=== PATIENT | male | born 1950 | race Caucasian/White ===

== ENCOUNTER 2021-09-20 00:15 | Day surgery (SDC) | payer MEDICARE, SELFPAY ==
[2021-09-06 14:49] VITALS: BMI 26.1
[2021-09-20 06:46] VITALS: BP 115/64; PULSE 116; RESP 16; TEMP 36.8; O2SAT 100
[2021-09-20] MEDS: LACTATED RINGERS 1,000 ML 150 ML IV CONT (07:01)
[2021-09-20 07:04] LABS: Glucose Point of Care 106 mg/dl (65-105)
--- NOTE | 2021-09-20 07:27 | P.CONGI_ITS ---
Assessment and Plan Assessment and plan (1) Positive colorectal cancer screening using Cologuard test: Code(s): R19.5 - Other fecal abnormalities Status: Acute Assessment and Plan: Patient was found to have positive Cologuard test. For this reason colonoscopy will be performed to assess more thoroughly. Further recommendations will be given after endoscopy. GI Consult Note Consult date/time: 09/20/21 07:27 HPI: Brent Amin is a 70 year old male Presents for screening col onoscopy. Patient reports his current weight appetite and bowel movements are normal. He denies abdominal pain. He has had no bleeding. Patient recently had Cologuard test found to be positive. He presents today for screening colonoscopy. Family history is noncontributory. Review of Systems Review of Systems: All systems reviewed & are unremarkable except as noted in HPI and below PMFSH Social History Social History Smoking status: Never smoker Alcohol intake: never Substance use: never Substance use type: does not use Living arrangements: with family Spiritual care concerns: No Meds Home Medications and Allergies Home Medications Medication Instructions Recorded Confirmed Type Trulicity 1.5 ml IM WEEKLY 09/06/21 09/20/21 History aspirin 81 mg PO DAILY 09/06/21 09/20/21 History losartan 100 mg PO DAILY 09/06/21 09/20/21 History rosuvastatin 20 mg PO DAILY 09/06/21 09/20/21 History Allergies Allergy/AdvReac Type Severity Reaction Status Date / Time No Known Allergies Allergy Verified 09/20/21 06:44 Vital Signs Vital Signs - 24 hr 09/20/21 06:46 Temperature 98.3 F Pulse Rate 116 H Respiratory Rate 16 Blood Pressure 115/64 Pulse Oximetry 100 Exam Narrative: Physical exam reveals patient to be alert. Vital signs stable. HEENT exam is unremarkable. Patient is anicteric. Lungs are clear to auscultation and percussion. Heart is without murmur or extra sounds. Abdominal exam bowel sounds are present soft nontender with no organomegaly. Digital external rectal exam is normal.
--- NOTE | 2021-09-20 07:31 | P.PNAN_ITS ---
Anes - Initial Pre Proc Eval Procedure: Operation Date: 09/20/21 08:00 Proposed Procedures p Screening Colonoscopy - Jerry Olmos MD Date/Time: 09/20/21 07:31 Surgeon: Jerry Olmos MD Pre Op Diagnosis: positive cologuard Patient Data Age: 70 Gender: M Height: 1.8 m Weight: 86.1 kg Last Vital Signs Temp 36.8 C 09/20/21 06:46 Pulse 116 H 09/20/21 06:46 Resp 16 09/20/21 06:46 BP 115/64 09/20/21 06:46 Pulse Ox 100 09/20/21 06:46 Allergies Allergy/AdvReac Type Severity Reaction Status Date / Time No Known Allergies Allergy Verified 09/20/21 06:44 Home Medications Medication Instructions Recorded Confirmed Type Trulicity 1.5 ml IM WEEKLY 09/06/21 09/20/21 History aspirin 81 mg PO DAILY 09/06/21 09/20/21 History losartan 100 mg PO DAILY 09/06/21 09/20/21 History rosuvastatin 20 mg PO DAILY 09/06/21 09/20/21 History Laboratory Tests 09/20/21 07:00 POC Capillary Glucose 106 mg/dl H mg/dl (65-105) Patient hx anesthesia problems: none Family hx anesthesia problems: none Results Review: All pre-operative results and documents have been reviewed as part of the pre-operative evaluation. [facility] Past Medical History Medical History Diabetes Hyperlipidemia Hypertension Prostate CA Social History Social History Smoking status: Never smoker Alcohol intake: never Substance use: never Substance use type: does not use Living arrangements: with family Spiritual care concerns: No Anes - Eval Final PreProcedure Day of Procedure 09/20/21 07:31 Patient weight: overweight Heart: regular rate and rhythm Lungs: clear to auscultation Airway: Mallampati scale class II Neurological: alert and oriented Last oral intake: >/= 8 hours ASA classification: III Emergent: no Anesthetic plan: proceed Anesthesia type and monitoring: general GIVS and standard monitoring Results Review: All pre-operative results and documents have been reviewed as part of the pre-operative evaluation. Informed Consent: The patient's anesthetic plan and its attendant risks and b enefits were discussed with the patient/family/POA. Questions were solicited and answers provided to the satisfaction of the patient/family/POA.
[2021-09-20 08:26] VITALS: BP 81/51; PULSE 83; RESP 15; O2SAT 97
[2021-09-20 08:36] VITALS: BP 90/60; PULSE 87; RESP 20; O2SAT 100
[2021-09-20 08:46] VITALS: BP 108/75; PULSE 86; RESP 18; O2SAT 99
== END 2021-09-20 08:54 | disposition home or self-care (01) ==
PROVIDERS: PCP Internal Medicine; Visit Provider Internal Medicine Gastroenterology
PROC: 0DJD8ZZ Inspection of Lower Intestinal Tract, Via Natural or Artificial Opening Endoscopic (ICD-10-PCS; CPT 45378; principal; 2021-09-20 08:00)
DX: R19.5 Other fecal abnormalities (principal); D12.0 Benign neoplasm of cecum; K57.30 Diverticulosis of large intestine without perforation or abscess without bleeding; K64.8 Other hemorrhoids; Z79.82 Long term (current) use of aspirin; E11.9 Type 2 diabetes mellitus without complications; E78.5 Hyperlipidemia, unspecified; I10 Essential (primary) hypertension; Z85.46 Personal history of malignant neoplasm of prostate
CPT/HCPCS: 45385; 82948; 88305; J2370; J2704; J7120

== ENCOUNTER 2023-05-14 13:45 | Outpatient (CLI) | payer MEDICARE, SELFPAY ==
--- NOTE | ~2023-05-14 | XR_ITS ---
Clinical Indication: Right lower lobe crackles, cough PA and lateral views of the chest: Comparison: None Findings: Calcified left upper lobe granuloma noted. The lungs are otherwise clear, without evidence of focal consolidation or pleural effusion. Cardiomediastinal silhouette is within normal limits. Dale camille and soft tissues are unremarkable. Impression: No significant abnormality. Reviewed, dictated and finalized at [facility]. [employer] Impression: No significant abnormality.
== END 2023-05-14 13:46 | disposition home or self-care (01) ==
PROVIDERS: PCP Internal Medicine; Visit Provider Internal Medicine
DX: R09.89 Other specified symptoms and signs involving the circulatory and respiratory systems (principal)
CPT/HCPCS: 71046